=== PATIENT | male | born 1995 | race Two or more races ===

== ENCOUNTER 2023-09-19 16:44 | Emergency (ER) | payer SELFPAY ==
[2023-09-19 16:52] VITALS: BP 125/71; PULSE 93; RESP 18; TEMP 36.4; O2SAT 99; BMI 23.3
--- NOTE | 2023-09-19 17:12 | ED_ITS ---
HPI - Eye Problem General Chief complaint: Eye Problems Stated complaint: LT PAIN PAIN Time Seen by Provider: 09/19/23 16:57 Source: patient Mode of arrival: walk-in History of Present Illness HPI Narrative: patient here is a possible foreign body in his left eye. On , four days ago, he was working with his father doing a metal grinding project. He felt a foreign body at that time. It really didn't start bothering him much until the last day or two. Now he sensitive to the light it's turned red he's got some lacrimation and discomfort in the eye. He does wear contact lenses but has not been wearing them since he injured his eye. He otherwise is in good health. He has no symptoms in his right eye. He has no infectious symptomatology. Related Data Home Medications Medication Instructions Recorded Confirmed No Known Home Medications 09/19/23 09/19/23 Allergies Allergy/AdvReac Type Severity Reaction Status Date / Time No Known Drug Allergies Allergy Verified 09/19/23 16:52 PFSH PFS Social History Smoking status: Never smoker Exam Narrative Exam Narrative: awake alert very pleasant vital signs are stable. Problem focus examination . The right eye is completely normal in appearance. The left eye shows normal pupillary light response. Lids and lashes are normal. Extraocular muscle is normal. There is some injection to conjunctiva. At the 6 o'clock position over the pupil there is no apparent foreign body. The lids were everted and there is no residual foreign body in the eyelid area. Slit lamp examination will be done. We will apply some tetracaine drops and attempted to remove the foreign body Constitutional Vital Signs, click to edit/add: Last Vital Signs Temp 97.6 F 09/19/23 16:52 Pulse 93 H 09/19/23 16:52 Resp 18 09/19/23 16:52 BP 125/71 09/19/23 16:52 Pulse Ox 99 09/19/23 16:52 Course Vital Signs Vital signs: Vital Signs Temperature 97.6 F 09/19/23 16:52 Pulse Rate 93 H 09/19/23 16:52 Respiratory Rate 18 09/19/23 16:52 Blood Pressure 125/71 09/19/23 16:52 Pulse Oximetry 99 09/19/23 16:52 Temperature 97.6 F 09/19/23 16:52 Pulse Rate 93 H 09/19/23 16:52 Respiratory Rate 18 09/19/23 16:52 Blood Pressure 125/71 09/19/23 16:52 Pulse Oximetry 99 09/19/23 16:52 MDM - Eye Problem MDM Narrative Medical decision making narrative: she has Form body in his left eye. A moistened cotton Q-tip was not successful in removing it. So after tetracaine drops in good analgesia we used a slit lamp. A #18-gauge beveled needle was used and we are able to scrape off the rust ring on the surface. A small amount of debris remained but a large part was removed. He felt much better after the eyedrops were applied. He'll be referred to our local [employer]electric plant electrical engineer tomorrow to have definitive management and remove any residual debris per their protocols. Discharge Plan Discharge Chief Complaint: Eye Problems Clinical Impression: Foreign body in cornea, left eye, initial encounter Patient Disposition: Home, Self-Care Time of Disposition Decision: 17:51 Prescriptions / Home Meds: No Action No Known Home Medications Additional Instructions: call and follow-up with local hydroelectric plant electrical engineer tomorrow. Cold compresses to the eye. Stand Alone Forms: Portal Instructions Referrals: Physician,Non-Staff, MD [Primary Care Provider] - 1 week
[2023-09-19] MEDS: TETRACAINE HCL 0.5% OP SOL 80 DROP/4 ML BOTTLE OP (17:30)
== END 2023-09-19 18:06 | disposition home or self-care (01) ==
PROVIDERS: Emergency Provider Emergency Medicine Emergency Medical Services
DX: T15.02XA Foreign body in cornea, left eye, initial encounter (principal); W44.9XXA Unspecified foreign body entering into or through a natural orifice, initial encounter
CPT/HCPCS: 65220; 99283